=== PATIENT | male | born 1945 | race Caucasian/White ===

== ENCOUNTER 2018-09-29 03:14 | Inpatient (IN) | payer MEDICARE, MEDICAID ==
[~2018-09-29] VITALS: Ht 175.2 cm; Wt 100.3 kg
--- NOTE | ~2018-09-29 | WRIGHTHP ---
[place], [place] PATIENT HISTORY AND PHYSICAL EXAM NAME: DRAKE SMALL [facility] #: [id number] UNIT #: [id number] ROOM: 315 DOCTOR: DRAKE MURDOCK MD BIRTHDATE: [birth year] DOS: 09/29/2018 CHIEF COMPLAINT: "I really wasn't going to hurt myself, I just got so frustrated and did something stupid." HISTORY OF PRESENT ILLNESS: This is a 73-year-old white male who was initially admitted to the [facility] Unit on an involuntary basis. The patient had reportedly ingested a large amount of Neurontin in a reported suicide attempt. The patient had got into argument and felt rejected by a particular friend and felt that his only way out from all of the pain and suffering was to end it all by taking a Neurontin overdose. 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 The patient has had poor sleep and appetite, anergia, anhedonia, hopeless, helpless feelings, crying spells, and inability to cope. He is admitted now to rule out any organic factors and attempt to stabilize on medication. PAST MEDICAL HISTORY: Remarkable for vitamin D deficiency, diabetes, urinary incontinence, hypertension, hyperlipidemia, chronic pain, muscle spasms. The patient does not use illicit drugs, drink alcohol or smoke cigarettes. STRENGTHS: Good verbal skills, willingness to receive help. WEAKNESS: Poor coping skills, chronic medical conditions. MENTAL STATUS: The patient is alert and oriented. Mood does seem to be overwhelmingly depressed. Affect is flat, blunted, and constricted. He endorses multiple neurovegetative symptoms, but does deny suicidal thoughts or plan. There is no liss, hypomania or psychosis. DIAGNOSIS: Major depression, recurrent, severe and dysthymic disorder. PLAN: I will go ahead and discontinue his BuSpar, it is being utilized as an adjunct to the Cymbalta. I would rather augment his Cymbalta with Abilify 10 as a more effective agent. I will check a Neurontin level in the morning to ensure that it is therapeutic and adjust his gabapentin then accordingly. I will add Trileptal 150 mg twice daily to help with some of the neuropathic pain. Routine screening examinations reveal a vitamin D level that is subtherapeutic at 16.4. I will treat with vitamin D 5000 international units daily. [place], [place] PATIENT HISTORY AND PHYSICAL EXAM NAME: DRAKE SMALL UNIT #: [id number] ROOM: [facility] DOCTOR: DRAKE MURDOCK MD BIRTHDATE: [birth year] DRAKE MURDOCK MD CM:HISPHYS:PATIENT HISTORY AND PHYSICAL EXAMINATION [id number] DRAKE MURDOCK MD 09/29/18 1013 interface
--- NOTE | ~2018-09-29 | DS ---
[place], [place] DISCHARGE SUMMARY NAME: DRAKE SMALL [facility] #: [id number] UNIT #: [id number] ROOM: 315 DOCTOR: DRAKE MURDOCK MD BIRTHDATE: [birth year] DOS: 09/30/2018 CHIEF COMPLAINT: "I really wasn't going to hurt myself. I just got so frustrated. I did something stupid." HISTORY OF PRESENT ILLNESS: This is a 73-year-old white male who was initially admitted to the [facility] Unit on an involuntary basis. The patient had reportedly ingested a large amount of Neurontin in a reported suicide attempt. The patient did get into an argument and felt rejected by a particular friend and felt that his only way out of the pain was to end it all through suicide. The patient does admit to ongoing depression and ongoing phantom limb pain. He endorses poor sleep and appetite, anergia, anhedonia, hopeless and helpless feelings, crying spells, and inability to cope. He does not endorse suicidal thoughts and in fact states he has multiple things to look forward to in life and wants to get better, so he can enjoy life. SUMMARY OF HOSPITAL COURSE: The patient was admitted to the unit where his BuSpar was discontinued due to ineffectiveness. Instead of augmenting his Cymbalta, which was at 60 mg twice daily with the BuSpar, I augmented with Abilify 10 mg at bedtime. Additionally, I added Trileptal 150 mg twice daily to augment the effectiveness of the mood stabilizer and also to reduce the phantom limb pain. The patient consistently through his stay denied suicidal thoughts and voiced positive plans for the future. After tolerating the med changes well and again voicing positive plans for the future, the patient was discharged back home. All of his prescriptions were e-scribed to [facility]. MENTAL STATUS AT DISCHARGE: He is alert and oriented to person, place and time. Mood does seem to be euthymic. Affect more appropriate. There is no liss, hypomania or psychosis. He denies suicidal thoughts, homicidal thoughts, or any self-injurious thoughts. Memory for the most part is fully intact. DIAGNOSES AT DISCHARGE: Major depression, recurrent, severe and dysthymic disorder. DISPOSITION: His prescriptions have been e-scribed to [facility]. At the time of discharge, there was no acute medical issue and psychiatrically he was stable. [place], [place] DISCHARGE SUMMARY NAME: DRAKE SMALL [place] UNIT #: [id number] ROOM: [facility] DOCTOR: DRAKE MURDOCK MD BIRTHDATE: [birth year] DRAKE MURDOCK MD CM:DISCHARG [id number] DRAKE MURDOCK MD 09/30/18 1214 interface
[2018-09-29] MEDS ORDERED: GABAPENTIN TAB600 MG PO (03:19)
[2018-09-29] MEDS ORDERED: NORCO 7.5-3251 EACH PO (03:26)
[2018-09-29] MEDS ORDERED: NOVOLOG10 ML SQ (03:26)
[2018-09-29] MEDS ORDERED: AMINOPHYLLIN200 MG PO (03:27)
[2018-09-29] MEDS ORDERED: DOXYCYCLINE100 M3 PO (03:27)
[2018-09-29] MEDS ORDERED: Bactroban Oint22 GM T (03:28)
[2018-09-29] MEDS ORDERED: FENOFIBRATE MI200 MG PO (03:29)
[2018-09-29] MEDS ORDERED: ALTOPREV40 M1 PO (03:29)
[2018-09-29] MEDS ORDERED: KLOR-CON 1010 ME1 PO (03:30)
[2018-09-29] MEDS ORDERED: FLORASTOR250 MG PO (03:31)
[2018-09-29] MEDS ORDERED: MILK OF MA400 MG/5 M PO (03:32)
[2018-09-29] MEDS ORDERED: VASCEPA1 G1 PO (03:33)
[2018-09-29] MEDS ORDERED: ATIVAN0.5 MG PO (03:33)
[2018-09-29] MEDS ORDERED: ASPER-FLEX85 GM T (03:35)
[2018-09-29] MEDS ORDERED: OSTERA TABLET1 EACH PO (03:36)
[2018-09-29] MEDS ORDERED: ACETAMINOPHEN325 M2 PO (03:37)
[2018-09-29] MEDS ORDERED: PLAVIX75 M1 PO (03:38)
[2018-09-29 03:39] VITALS: BP 168/80
[2018-09-29] MEDS ORDERED: NITROSTAT0.4 MG SL (03:39)
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
[2018-09-29] MEDS ORDERED: FUROSEMIDE40 MG PO (03:40)
[2018-09-29] MEDS ORDERED: TOPROL XL50 M1 PO (03:40)
[2018-09-29] MEDS ORDERED: BUSPIRONE15 MG PO (03:41)
[2018-09-29] MEDS ORDERED: ROBAXIN-750750 MG PO (03:41)
[2018-09-29] MEDS ORDERED: CYMBALTA60 MG PO (03:41)
[2018-09-29] MEDS ORDERED: OXYBUTYNIN5 MG PO (03:42)
--- NOTE | 2018-09-29 04:15 | NUR ---
DR RUST UPDATED ABOUT PATIENT ADMITTED TO THE UNIT. PATIENT UNDER DR ALLNE FOR MEDICAL MANAGEMENT
[2018-09-29 07:23] VITALS: BP 168/80
[2018-09-29 07:30] LABS: BASO % 0.2 % (0.0-1.0); EOS # 0.1 10*3/uL (0.0-0.4); EOS % 1.3 % (1.0-4.0); HEMATOCRIT 41.9 % (42.0-52.0); HEMOGLOBIN 13.6 g/dl (14.0-18.0); LYMPH # 2.2 10*3/uL (1.3-4.4); LYMPH % 21.5 % (27.0-41.0); MEAN CELL VOLUME 90.5 fl (80.0-94.0); MEAN CORPUSCULAR HGB 29.4 pg (27.0-31.0); MEAN CORPUSCULAR HGB CONC 32.5 g/dl (33.0-37.0); MEAN PLATELET VOLUME 10.2 fl (9.6-12.3); MONO # 0.7 10*3/uL (0.1-1.0); MONO % 6.5 % (3.0-9.0); NEUT # 7.1 10*3/uL (2.3-7.9); NEUT % 70.2 % (47.0-73.0); PLATELET COUNT AUTOMATED 168 10*3/uL (130-400); RED BLOOD COUNT 4.63 10*6/uL (4.50-5.90); WHITE BLOOD COUNT 10.1 10*3/uL (4.8-10.8)
[2018-09-29 07:37] VITALS: BP 168/80
[2018-09-29 07:57] LABS: ALBUMIN 2.8 gm/dl (3.1-4.5); BUN 15 mg/dl (7-24); CHLORIDE 109 mmol/L (98-107); CHOLESTEROL 177 mg/dL (<200); CREATININE 0.62 mg/dL (0.70-1.30); POTASSIUM 3.3 mmol/L (3.5-5.1); SGOT/AST 18 IU/L (3-35); SGPT/ALT 21 U/L (12-78); SODIUM 144 mmol/L (136-145); TRIGLYCERIDES 370 mg/dl (<150); VLDL CHOLESTEROL 74 mg/dL (6-40)
[2018-09-29 08:07] LABS: ALKALINE PHOSPHATASE 72 U/L (45-117); HDL CHOLESTEROL 30 mg/dl (40-60); LDL CHOLESTEROL 73 mg/dL (9-159); TOTAL PROTEIN 6.7 gm/dL (6.4-8.2)
--- NOTE | 2018-09-29 08:30 | NUR ---
Treatment Plan meeting with Dr. Sheppard, RN, AT and [employer] Manager. Plan for discharge Tommorow if pt. requests discharge. Will work with patient for discharge planning and home needs.
--- NOTE | 2018-09-29 08:37 | NUR ---
CRITICAL LAB REPORTED OF 45, PT WAS EATING BREAKFAST AT TIME OF REPORT. PT CONSUMED ALL OF MEAL, PLEASANT AND ASYMPTOMATIC AT THIS TIME, PT BLOOD GLUCOSE IS 107, DR RUST NOTIFIED OF BLOOD SUGAR, ELEVATED BLOOD PRESSURE AND PT MEDICAL MEDICATION NEEDING TO BE REVIEWED. CONTINUE TO MONITOR PT AT THIS TIME. DRAKE IS CURRENTLY TALKING WITH INSURANCE CUSTOMER SERVICE SPECIALIST AND AGREED TO SIGN IN VOLUNATARILY TO THE UNIT AT THIS TIME. PLEASANT COOPERATIVE AND INTERACTIVE WITH ALL ASPECTS OF CARE.
[2018-09-29 08:42] LABS: VITAMIN D, 25-HYDROXY 16.4 ng/mL (30-100)
--- NOTE | 2018-09-29 08:50 | NUR ---
psychosocial hx completed this date. client did sign a voluntary admission.he is pleasant and cooperative, alert and oriented, no psychosis evidenced.
--- NOTE | 2018-09-29 10:39 | NUR ---
Spoke with Patient in the Dining Area. Pt. does not follow with Psych for his depression his family physician Dr. Marcelino Elder treats him for the depression. Call placed to Dr. Elder office and Spoke with Pat. Advised that patient may discharge home tommorow and would need follow up for depression. Pat provided counselor aide with Fax number for Dr. Elder . Pt. has previously scheduled appointment for 10/06/18 1:45 p.m. which will be kept.
[2018-09-29] MEDS ORDERED: LISINOPRIL40 MG PO (10:43)
[2018-09-29] MEDS ORDERED: MYRBETRIQ25 M1 PO (10:45)
[2018-09-29] MEDS ORDERED: TRESIBA FL200 UNIT/1 SQ (10:46)
[2018-09-29] MEDS ORDERED: FLOMAX0.4 MG PO (10:47)
[2018-09-29] MEDS ORDERED: PRILOSEC20 M1 PO (10:50)
[2018-09-29] MEDS ORDERED: AZELASTINE HYDRO6 M1 NAS (10:52)
[2018-09-29] MEDS ORDERED: CHOLESTYRAMI239.4 GM PO (10:56)
[2018-09-29] MEDS ORDERED: VICTOZA 2-0.6 MG/0.1 SC (10:57)
[2018-09-29] MEDS ORDERED: FENOFIBRIC ACI135 M1 PO (10:58)
[2018-09-29] MEDS ORDERED: 24HR ALLERGY REL5 MG PO (11:00)
[2018-09-29] MEDS ORDERED: SILVADENE,SSD C50 GM T (11:01)
[2018-09-29] MEDS ORDERED: AMLODIPINE BESYL5 MG PO (11:05)
--- NOTE | 2018-09-29 11:43 | NUR ---
AM GROUP, BRYAN PT ATTENDED AND PARTICIPATED. PT OPEN, PLEASANT, AND ON TASK. PT DID NOT EXPRESS ANY SUICIDAL IDEATIONS AT THIS TIME. PT WILL CONTINUE TO ATTEND AND PARTICIPATE IN FUTURE GROUP SESSIONS.
--- NOTE | 2018-09-29 15:40 | NUR ---
PM GROUP/ GAMES PT ATTENDED AND PARTICIPATED DURING GROUP. PT PLEASANT AND ON TASK WITH NO EXPRESSIONS OF SUICIDAL IDEATION. PT POSITIVE THROUGHOUT GROUP. PT WILL CONTINUE TO BE ENCOURAGED TO ATTEND AND PARTICIPATE THROUGHOUT GROUP SESSIONS.
[2018-09-29 20:08] VITALS: BP 155/76
--- NOTE | 2018-09-29 22:32 | NUR ---
Patient alert and oriented x 4. No ST/LT memory deficits noted. Patient denies homicidal/suicidal ideations at this time. No hallucinations/delusions noted at this time. Patient is compliant with medications without difficulty. Encourage patient to talk with staff if having any harmful thoughts or ideas. Q 15 minute safety checks continued and maintained.
--- NOTE | 2018-09-30 00:15 | NUR ---
24 HR chart check completed.
--- NOTE | 2018-09-30 05:38 | NUR ---
Patient slept approx. 8 hours throughout shift.
[2018-09-30 07:45] LABS: BUN 18 mg/dl (7-24); CHLORIDE 103 mmol/L (98-107); CREATININE 0.65 mg/dL (0.70-1.30); POTASSIUM 3.9 mmol/L (3.5-5.1); SODIUM 139 mmol/L (136-145)
--- NOTE | 2018-09-30 07:50 | NUR ---
PT AWAKE, ALERT, FEEDING SELF BREAKFAST.
[2018-09-30 07:53] VITALS: BP 132/80
--- NOTE | 2018-09-30 09:45 | NUR ---
ON UNIT TO SEE PT AT THIS TIME, UPDATE GIVEN.
[2018-09-30] MEDS ORDERED: OXCARBAZEPINE150 MG PO (09:47)
[2018-09-30] MEDS ORDERED: ARIPIPRAZOLE10 MG PO (09:47)
[2018-09-30] MEDS ORDERED: VITAMIN D5000 UNI1 PO (09:47)
--- NOTE | 2018-09-30 10:21 | NUR ---
PT'S HOME PHARMACY CLOSED TODAY D/T [facility]. DISCUSSED ALTERNATIVE OPTIONS WITH PT. PER PT HE IS UNABLE TO STOP ANYWHERE ELSE TO P/U MEDICATIONS ON THE WAY HOME SINCE HE DOESNT HAVE ANY MONEY ON HIM. HIS HOME PHARMACY WILL DELIVER HIS NEW MEDICATIONS TO HIM TOMORROW. DISCUSSED WITH . PER OKAY TO PROCEED WITH DISCHARGE TODAY AND FOR PT TO GET NEW MEDS TOMORROW. WITNESSED BY 2ND RN IRVIN
--- NOTE | 2018-09-30 10:44 | NUR ---
P- PT IS ALERT AND ORIENTED TO PERSON, PLACE, TIME AND SITUATION. MEMORY APPERS TO BE INTACT. RESPS EASY AND EVEN ON ROOM AIR. MOOD IS STABLE, AFFECT IS APPROPRIATE. SPEECH IS WNL AND COHERENT, ABLE TO MAKE NEEDS KNOWN WITHOUT DIFFICULTY. I- ORIENTATION, MOOD AND BEHAVIOR ASSESSED. ASSESSED PT FOR SI/HI, INTENT AND/OR PLAN WELL EVIDENCE OF SENSORY DISTURBANCES. MEDICATIONS ADMINISTERED PER PHYSICIAN'S ORDERS, MEDICATION EDUCATION PROVIDED. 1:1 WITH PT, ALLOWED PT TIME TO EXPRESS FEELINGS AND REFLECT ON EVENTS LEADING UP TO ADMISSION WELL CURRENT TREATMENT. ENCOURAGED PT TO ATTEND AND PARTICIPATE IN GROUPS AND ACTIVITIES. R- PT READILY ENGAGED IN CONVERSATION WITH THIS NURSE. PT DENIES SI/HI, INTENT OR PLAN. PT STATES "I'VE NEVER REALLY EVEN FELT DEPRESSED. I DON'T KNOW WHY I DID THAT. IT WAS STUPID. IT WASN'T EVEN SOMETHING THAT WAS REALLY GOING TO HARM ME." PT CONVINCINGLY DENIES CURRENT SI AND HAS CONTRACTED FOR SAFETY. PT DENIES HALLUCINATIONS AND NO RESPONSE TO INTERNAL STIMULI IS NOTED. PT IS CALM, PLEASANT AND COOPERATIVE. PT STATES HE IS FEELING MUCH BETTER AND IS READY TO GO HOME. PT IS MEDICATION COMPLIANT WITHOUT DIFFICULTY, EXPRESSES UNDERSTANDING OF MEDICATIONS AND IMPORTANCE OF COMPLIANCE. PT IS CURRENTLY ATTENDING MORNING GROUP. P- CONTINUE CURRENT TREATMENT, MONITOR MOOD AND BEHAVIOR, PROVIDE REDIRECTION, 1:1 AND REORIENTATION NEEDED. CONTINUE TO ENGAGE PT IN GROUPS AND ACTIVITIES AND PLAN FOR DISCHARGE.
--- NOTE | 2018-09-30 11:08 | NUR ---
NOTIFIED OF DISCHARGE FOR TODAY.
--- NOTE | 2018-09-30 11:10 | NUR ---
Nursing staff reports that patient is being discharged today. Trudy Tan OTR/l
--- NOTE | 2018-09-30 11:12 | NUR ---
PHYSICAL THERAPY Staffing reports patient being discharged. Thank you for this referral. Kylee Alas ,PT
--- NOTE | 2018-09-30 11:14 | NUR ---
ON UNIT TO SEE PT AT THIS TIME.
--- NOTE | 2018-09-30 11:36 | NUR ---
AM GROUP THERAPY PT ATTENDED AND PARTICIPATED IN ALL GROUP ACTIVITIES. PT EXPRESSED NO SUICIDAL IDEATIONS DURING GROUP. PT WAS PLEASANT AND CONVERSED EASILY WITH STAFF AND PEERS. PT WILL BE DISCHARGED FROM THE UNIT TODAY.
--- NOTE | 2018-09-30 13:15 | NUR ---
SPOKE TO PT'S FRIEND CASEY WHO LIVES IN HIS APARTMENT BUILDING PER PT'S REQUEST, CASEY WILL MEET PT AT HIS SIDE DOOR WITH HIS WHEELCHAIR ONCE HE GETS HOME. PT AWARE.
--- NOTE | 2018-09-30 13:58 | NUR ---
PT DISCHARGED AT THIS TIME TO HOME VIA [facility]. ALL DISCHARGE INSTRUCTIONS WERE REVIEWED WITH THE PT PRIOR TO DISCHARGE WITH PT'S STATED UNDERSTANDING OF ALL. SCRIPTS WERE ESCRIBED TO PT'S PHARMACY AND PT STATES HIS PHARMACY WILL DELIVER THEM TO HIM. ALL PERSONAL BELONGINGS WERE SENT WITH THE PT INCLUDING LOCK BOX ITEMS. PT LEFT THE UNIT IN STABLE CONDITION AT 1358 ESCORTED VIA WHEELCHAIR TO MAIN ENTRANCE TO MEET [facility] BY [facility] STAFF.
[2018-10-03 11:07] LABS: NEURONTIN (GABAPENTIN) 4.6 ug/mL (4.0-16.0)
== END 2018-09-30 13:58 | disposition home or self-care (01) | DRG 885 ==
LOC: 3N 03:14
PROVIDERS: Nurse Practitioner Women's Health; Student in an Organized Health Care Education/Training Program; ADMIT Psychiatry & Neurology Psychiatry
DX: F33.2 Major depressive disorder, recurrent severe without psychotic features (principal); E43 Unspecified severe protein-calorie malnutrition; R45.851 Suicidal ideations; F34.1 Dysthymic disorder; E78.5 Hyperlipidemia, unspecified; G89.29 Other chronic pain; E55.9 Vitamin D deficiency, unspecified; M79.2 Neuralgia and neuritis, unspecified; E66.9 Obesity, unspecified; E11.51 Type 2 diabetes mellitus with diabetic peripheral angiopathy without gangrene; I11.0 Hypertensive heart disease with heart failure; I50.9 Heart failure, unspecified; E78.1 Pure hyperglyceridemia; N40.1 Benign prostatic hyperplasia with lower urinary tract symptoms; N39.498 Other specified urinary incontinence; M48.00 Spinal stenosis, site unspecified; R00.0 Tachycardia, unspecified; D64.9 Anemia, unspecified; E87.6 Hypokalemia; E87.8 Other disorders of electrolyte and fluid balance, not elsewhere classified; E11.649 Type 2 diabetes mellitus with hypoglycemia without coma; Z79.4 Long term (current) use of insulin; Z86.73 Personal history of transient ischemic attack (TIA), and cerebral infarction without residual deficits; Z79.899 Other long term (current) drug therapy; Z79.02 Long term (current) use of antithrombotics/antiplatelets; Z68.32 Body mass index [BMI] 32.0-32.9, adult; Z95.810 Presence of automatic (implantable) cardiac defibrillator; Z89.611 Acquired absence of right leg above knee